=== PATIENT | male | born 1930 | race Caucasian/White ===

== ENCOUNTER 2018-02-04 10:16 | Emergency (ER) | payer OTHER, MEDICARE ==
--- NOTE | 2018-02-04 10:52 | EDPHY ---
HPI/HX/ROS/PE/MDM Narrative: CHIEF COMPLAINT: Shortness of breath, leg numbness HPI: The patient is an 87-year-old male with a history of prior HI, COPD and hypertension who is visiting from [place]. He arrived in town approximately 10 days ago. He presents to the emergency department with worsening shortness of breath at rest. He apparently experience this when he initially arrived, it got better, but then this morning he had an episode of somewhat severe shortness of breath while trying to get dressed. He also describes pain in the upper portion of both legs over that time period. This morning, he had 3 episodes of transient numbness of his right lower extremity only, lasting approximately 5 min at a time and relieved with exercise. He denies any weakness or difficulty walking during these episodes. He denies numbness anywhere else in his body. No recent change in medication. REVIEW OF SYSTEMS: Aside from elements discussed in the HPI, a comprehensive 10-point review of systems was reviewed and is negative. PMH: Includes COPD, coronary disease, mi, hypertension. SOCIAL HISTORY: Lives in [place]. Retired. Visiting his daughter here in [place]. PHYSICAL EXAM: General:Patient is alert, in no acute distress. ENT:Eyes are normal to inspection. ENT inspection normal. Neck: Normal inspection. Full range of motion. Respiratory:No respiratory distress. Breath sounds normal bilaterally. Cardiovascular: Regular rate and rhythm. Strong peripheral pulses. Normal cap refill. Abdomen:The abdomen is nontender to palpation. There are no peritoneal signs. There are normal bowel sounds. Back: Normal to inspection. No tenderness to palpation. Skin: Normal color. No rash. Warm and dry. Extremities: Normal appearance. Full range of motion. No pedal edema. Neuro: Oriented x3. Normal motor function. Normal sensory function. ED Course: 87-year-old male with a history of prior HI, COPD and hypertension presents with worsening shortness of breath and occasional episodes of right lower extremity numbness. Plan for EKG, chest x-ray, labs including CBC with manual diff, chemistries, troponin, D-dimer, BNP. EKG was ordered and interpreted by myself. Please see [facility] system for official reading. D-dimer elevated at 2.36. Plan for CTA to r/o PE. Labs otherwise largely unremarkable. Troponin and BNP negative. 12:[address] Crabtree, radiologist. CTA chest is negative for PE. Reassessed. Discussed imaging and laboratory results. I offered admission for further workup, but the patient declines at this time. Plan to discharge home in good condition. Follow up and return precautions discussed. The patient is comfortable with this plan. MDM: The patient was ambulated by staff around the emergency department without any symptoms. On re-evaluation following this, he remains asymptomatic with normal vital signs and is not hypoxic. I discussed options with him and his daughter including admission to the hospital and or urgent cardiology evaluation. They feel comfortable going home. The description of his right leg numbness does not sound similar to stroke given that it was sensory only any as a history of lumbar stenosis. I suspect this is likely lumbar radiculopathy. Regardless, the patient has no objective neurological signs at all at this moment. - Data Points Imaging Results: Imaging Impressions Chest X-Ray 02/04/18 10:43 Impression: Interval increase in subpleural interstitial lung disease bilaterally from prior examination; otherwise negative chest.. Chest/Thorax CTA 02/04/18 11:15 Impression: 1. Negative CT examination of the chest for acute pulmonary thromboembolic disease. 2. 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 3. Coronary atherosclerosis. Results called to Dr. Kishan Perdomo at 12:00 PM at the time of the interpretation. Imaging: Discussed imaging studies w/ call specialist Radiologist Laboratory Results: Laboratory Results 02/04/18 10:40 02/04/18 10:40 02/04/18 02/04/18 02/04/18 10:40 10:40 10:40 WBC 8.38 10^3/uL 10^3/uL (3.80-9.50) RBC 3.59 10^6/uL L 10^6/uL (4.40-6.38) Hgb 9.7 g/dL L g/dL (13.7-17.5) Hct 32.8 % L % (40.0-51.0) MCV 91.4 fL fL (81.5-99.8) MCH 27.0 pg L pg (27.9-34.1) MCHC 29.6 g/dL L g/dL (32.4-36.7) RDW 16.6 % H % (11.5-15.2) Plt Count 146 10^3/uL L 10^3/uL (150-400) MPV 11.0 fL fL (8.7-11.7) Neut % (Auto) 52.4 % % (39.3-74.2) Lymph % (Auto) 26.3 % % (15.0-45.0) [place] % (Auto) 19.7 % H % (4.5-13.0) Eos % (Auto) 0.1 % L % (0.6-7.6) Baso % (Auto) 0.2 % L % (0.3-1.7) Nucleat RBC Rel Count 0.0 % % (0.0-0.2) Absolute Neuts (auto) 4.39 10^3/uL 10^3/uL (1.70-6.50) Absolute Lymphs (auto) 2.20 10^3/uL 10^3/uL (1.00-3.00) Absolute Monos (auto) 1.65 10^3/uL H 10^3/uL (0.30-0.80) Absolute Eos (auto) 0.01 10^3/uL L 10^3/uL (0.03-0.40) Absolute Basos (auto) 0.02 10^3/uL 10^3/uL (0.02-0.10) Absolute Nucleated RBC 0.00 10^3/uL 10^3/uL (0-0.01) Immature Gran % 1.3 % H % (0.0-1.1) Seg Neutrophils % 47.0 % % Band Neutrophils % 0.0 % % Lymphocytes % 45.0 % % Monocytes % 8.0 % % Eosinophils % 0.0 % % Basophils % 0.0 % % Metamyelocytes % 0.0 % % Myelocytes % 0.0 % % Promyelocytes % 0.0 % % Blast Cells % 0.0 % % Immature Gran # 0.11 10^3/uL H 10^3/uL (0.00-0.10) Absolute Seg Neuts 3.94 10^3/uL 10^3/uL (1.70-6.50) Absolute Band Neuts 0.00 10^3/uL 10^3/uL (0.00-0.70) Absolute Lymphocytes 3.77 10^3/uL H 10^3/uL (1.00-3.00) Absolute Monocytes 0.67 10^3/uL 10^3/uL (0.30-0.80) Absolute Eosinophils 0.00 10^3/uL L 10^3/uL (0.03-0.40) Absolute Basophils 0.00 10^3/uL L 10^3/uL (0.02-0.10) Absolute Metamyelocyte 0.00 10^3/mL 10^3/mL (0.00-0.00) Absolute Myelocytes 0.00 10^3/mL 10^3/mL (0.00-0.00) Absolute Promyelocytes 0.00 10^3/uL 10^3/uL (0.00-0.00) Absolute Plasma Cells 0.00 10^3/uL 10^3/uL (0.00-0.00) Absolute Blast Cells 0.00 10^3/uL 10^3/uL (0.00-0.00) Plasma Cells % 0.0 % % Platelet Estimate DECREASED L (ADEQ) Oval Macrocytes 1+ H Elliptocytes 1+ H D-Dimer 2.36 ug/mLFEU H ug/mLFEU (0.00-0.50) Sodium 136 mEq/L mEq/L (135-145) Potassium 4.3 mEq/L mEq/L (3.3-5.0) Chloride 100 mEq/L mEq/L (97-110) Carbon Dioxide 25 mEq/l mEq/l (22-31) Anion Gap 11 mEq/L mEq/L (6-14) BUN 19 mg/dL mg/dL (7-23) Creatinine 0.9 mg/dL mg/dL (0.7-1.3) Estimated GFR > 60 Glucose 133 mg/dL H mg/dL (70-100) Calcium 9.1 mg/dL mg/dL (8.5-10.4) POC Troponin I NT-Pro-B Natriuret Pep 260 pg/mL pg/mL (0-450) 02/04/18 10:39 WBC RBC Hgb Hct MCV MCH MCHC RDW Plt Count MPV Neut % (Auto) Lymph % (Auto) [place] % (Auto) Eos % (Auto) Baso % (Auto) Nucleat RBC Rel Count Absolute Neuts (auto) Absolute Lymphs (auto) Absolute Monos (auto) Absolute Eos (auto) Absolute Basos (auto) Absolute Nucleated RBC Immature Gran % Seg Neutrophils % Band Neutrophils % Lymphocytes % Monocytes % Eosinophils % Basophils % Metamyelocytes % Myelocytes % Promyelocytes % Blast Cells % Immature Gran # Absolute Seg Neuts Absolute Band Neuts Absolute Lymphocytes Absolute Monocytes Absolute Eosinophils Absolute Basophils Absolute Metamyelocyte Absolute Myelocytes Absolute Promyelocytes Absolute Plasma Cells Absolute Blast Cells Plasma Cells % Platelet Estimate Oval Macrocytes Elliptocytes D-Dimer Sodium Potassium Chloride Carbon Dioxide Anion Gap BUN Creatinine Estimated GFR Glucose Calcium POC Troponin I 0.00 ng/mL ng/mL (0.00-0.08) NT-Pro-B Natriuret Pep Point of Care Test Results: Chemistry 02/04/18 10:39 POC Troponin I 0.00 ng/mL ng/mL (0.00-0.08) General Time Seen by Provider: 02/04/18 10:33 Initial Vital Signs: Initial Vital Signs Temperature (C) 36.6 C 02/04/18 10:24 Heart Rate 68 02/04/18 10:24 Respiratory Rate 20 02/04/18 10:24 Blood Pressure 110/85 H 02/04/18 10:24 O2 Sat (%) 86 L 02/04/18 10:24 O2 Delivery Mode Room Air Allergies/Adverse Reactions: No Known Allergies Allergy (Verified 02/04/18 10:20) Home Medications: Medication Instructions Recorded Allopurinol [Allopurinol 300 MG 300 mg PO DAILY 09/22/12 (RX)] Aspirin [Aspirin 81mg (OTC)] 81 mg PO DAILY 09/22/12 Atorvastatin Calcium [Lipitor 80 80 mg PO DAILY 09/22/12 mg] Donepezil HCl [Aricept] 10 mg PO DAILY 09/22/12 Doxazosin Mesylate [Cardura 4 MG 4 mg PO BID 09/22/12 (RX)] Isosorbide Mononitrate [Imdur] 30 mg PO DAILY 09/22/12 Nadolol [Nadolol 20 mg (RX)] 20 mg PO HS 09/22/12 Nitroglycerin [Nitrostat 0.4 mg 0.4 mg SL PRN PRN 09/22/12 (RX)] Pantoprazole Sodium [Protonix 40mg 40 mg PO DAILY 09/22/12 (RX)] Primidone 100 mg PO DAILY 09/22/12 Tramadol HCl 50 mg PO Q6 PRN 09/22/12 Lisinopril [Zestril 10 mg (RX)] 10 mg PO DAILY 09/26/12 Lisinopril [Zestril 2.5 mg (RX)] 2.5 mg PO DAILY 09/26/12 Primidone 150 mg PO BID@1200,2100 09/26/12 Departure - Departure Disposition: Home, Routine, Self-Care Clinical Impression: Dyspnea Qualifiers: Dyspnea type: shortness of breath Qualified Code(s): R06.02 - Shortness of breath; R06.00 - Dyspnea, unspecified; R06.01 - Orthopnea Condition: Good Instructions: Dyspnea (ED) Additional Instructions: Follow-up with Cardiology and/or year regular physician within 1 week. Return to the emergency department for shortness of breath, chest pain or other concerns. Referrals: Z[facility],DOCTOR [Other] - As per Instructions Report Scribed for: Kishan Perdomo Report Scribed by: Amanda Mcfadden Date of Report: 02/04/18 Time of Report: 12:51
[2018-02-04 11:09] LABS: PLATELET COUNT 146 10^3/uL (150-400)
[2018-02-04] MEDS ORDERED: IOPAMIDOL (ISOVUE 370) 100 ML BTL IV ONE (11:21)
[2018-02-04 12:35] VITALS: BP 125/63
--- NOTE | 2018-02-04 15:20 | CPEKG ---
Test Reason : OPEN Blood Pressure : / mmHG Vent. Rate : 072 BPM Atrial Rate : 077 BPM P-R Int : 234 ms QRS Dur : 090 ms QT Int : 374 ms P-R-T Axes : 011 -44 058 degrees QTc Int : 410 ms Sinus rhythm Atrial premature complexes Prolonged WI interval Left anterior fascicular block Probable LVH with secondary repol abnrm Confirmed by Kishan Perdomo ([id number]) on 02/04/2018 3:20:00 PM Referred By: Confirmed By:Kishan Perdomo
== END 2018-02-04 12:55 | disposition home or self-care (01) ==
DX: R06.02 Shortness of breath (principal); R06.01 Orthopnea; R20.0 Anesthesia of skin; I10 Essential (primary) hypertension; I25.10 Atherosclerotic heart disease of native coronary artery without angina pectoris; J44.9 Chronic obstructive pulmonary disease, unspecified; I25.2 Old myocardial infarction
CPT/HCPCS: 71046; 71275; 93005; 99285; Q9967; 84484-PO